=== PATIENT | female | born 1975 | race Caucasian/White ===

== ENCOUNTER 2016-11-16 19:29 | Emergency (ER) | payer MEDICAID ==
[~2016-11-16 19:29] MED LIST: ADDERALL 10 MG10 MG; ADDERALL 30 MG30 MG; ADDERALL XR 3030 MG PO; AMBIEN; AMBIEN10 MG; AMBIEN10 MG PO; AMPHETAMINE SAL20 MG PO; ATIVAN0.5 MG; ATIVAN0.5 MG PO; BACTRIM DS TABL1 TAB PO; BACTRIM DS1 TAB PO; BACTROBAN15 GM TP; BUSPAR10 MG; CLEOCIN150 MG/CA1 PO; CLONAZEPAM1 MG PO; CLONIDINE PO; CYMBALTA60 MG; DESYREL150 MG PO; DORYX100 MG PO; FLEXERIL10 MG PO; GLUCOPHAGE500 MG; HYDRALAZINE HCL10 M1 PO; HYDROCODON-ACE1 EAC7 PO; IBUPROFEN800 MG; IBUPROFEN800 MG PO; IMITREX100 M2 PO; KEFLEX500 MG PO; KLONOPIN; KLONOPIN0.25 MG/TA; KLONOPIN1 MG PO; LAMICTAL; LAMICTAL100 M2 PO; LAMICTAL100 MG PO; LAMICTAL150 MG PO; LISINOPRIL; LISINOPRIL20 M1 PO; LYRICA; LYRICA25 MG PO; LYRICA75 MG PO; MOBIC15 MG; MOBIC15 MG PO; MOBIC7.5 MG PO; MOTRIN600 MG PO; MOTRIN800 MG PO; NEURONTIN100 MG PO; NORCO 10/325 TA1 TAB; NORCO 5/325 TAB1 TAB PO; NORCO 5/3251 TAB PO; NORCO 7.5/325 T1 TAB PO; OXYCODONE/APAP PO; PERCOCET 5/3251 TAB PO; PRENATAL1 EACH PO; SAPHRIS10 MG SL; SEROQUEL25 MG; SEROQUEL50 MG; SKELAXIN800 MG PO; SONATA5 MG; STRATTERA80 MG PO; TRAZODONE; TRAZODONE HCL100 M1 PO; TRAZODONE HCL150 MG PO; TRAZODONE50 MG PO; TRILEPTAL300 MG; ULTRAM50 MG PO; VICODIN 5/500 T1 TAB PO; WELLBUTRIN; ZOFRAN8 MG PO; ZOLOFT; ZOLOFT100 MG PO; ZOLOFT25 MG PO; ZOLOFT50 MG PO
[2016-11-16] MEDS ORDERED: ALL DAY ALLERGY10 M7 PO (20:24)
[2016-11-16] MEDS ORDERED: CYMBALTA30 M1 PO (20:24)
[2016-11-16] MEDS ORDERED: IBUPROFEN200 M2 PO (20:25)
[2016-11-16] MEDS ORDERED: GABAPENTIN300 M1 PO (20:25)
[2016-11-16] MEDS ORDERED: TYLENOL EXTRA500 M1 PO (20:25)
[2016-11-16] MEDS ORDERED: SEROQUEL XR150 M1 PO (20:26)
[2016-11-16] MEDS ORDERED: CYCLOBENZAPRINE10 M1 PO (20:57)
== END 2016-11-16 21:13 ==
LOC: EDMED 19:29
DX: M54.5 Low back pain (principal); F31.9 Bipolar disorder, unspecified; Z86.59 Personal history of other mental and behavioral disorders; Z87.891 Personal history of nicotine dependence; Z88.1 Allergy status to other antibiotic agents; Z88.8 Allergy status to other drugs, medicaments and biological substances
CPT/HCPCS: J1885

== ENCOUNTER 2017-01-25 20:34 | Emergency (ER) | payer MEDICAID ==
[~2017-01-25 20:34] MED LIST changes: +ALL DAY ALLERGY10 M7 PO; +CYCLOBENZAPRINE10 M1 PO; +CYMBALTA30 M1 PO; +GABAPENTIN300 M1 PO; +IBUPROFEN200 M2 PO; +SEROQUEL XR150 M1 PO; +TYLENOL EXTRA500 M1 PO
[2017-01-25] MEDS ORDERED: CYCLOBENZAPRINE10 M1 PO (21:06)
[2017-01-25] MEDS ORDERED: LISINOPRIL20 M1 PO (21:09)
[2017-01-25] MEDS ORDERED: PRAZOSIN HCL1 M2 PO (21:10)
[2017-01-25] MEDS ORDERED: TRAZODONE HCL100 M1 PO (21:14)
[2017-01-25] MEDS ORDERED: TOPAMAX25 M2 PO (21:14)
[2017-01-25] MEDS ORDERED: TYLENOL EXTRA500 M1 PO (21:15)
[2017-01-25] MEDS ORDERED: COLACE100 M1 PO (21:15)
[2017-01-25] MEDS ORDERED: ROXICODONE5 M2 PO (21:16)
[2017-01-25] MEDS ORDERED: OXYCODONE HCL5 M1 PO (22:19)
== END 2017-01-25 23:00 ==
LOC: EDMED 20:34
DX: M54.2 Cervicalgia (principal); G89.29 Other chronic pain; I10 Essential (primary) hypertension; F31.9 Bipolar disorder, unspecified; F41.9 Anxiety disorder, unspecified; F60.3 Borderline personality disorder; F43.10 Post-traumatic stress disorder, unspecified; M19.90 Unspecified osteoarthritis, unspecified site; Z87.891 Personal history of nicotine dependence; Z79.899 Other long term (current) drug therapy
CPT/HCPCS: J1170; J3360